=== PATIENT | male | born 1985 | race Caucasian/White ===

== ENCOUNTER 2016-11-23 16:44 | Inpatient (IN) ==
[2016-11-23] MEDS ORDERED: ACETAMINOPHEN 325 MG TABLET PO PRN (19:14)
[2016-11-23] MEDS ORDERED: traMADol 50 MG TABLET PO PRN (19:14)
[2016-11-23] MEDS ORDERED: SODIUM CHLORIDE 0.9% 250 ML IV PRN (19:21)
[2016-11-23 20:00] LABS: Basophils % 0.1 % (0.0-0.8); Eosinophils # 0.1 10*3/uL (0.0-0.87); Eosinophils % 0.5 % (0.00-10.9); Hematocrit 30.3 VOL% (42.0-52.0); Hemoglobin 11.2 GM/DL (14.0-18.0); Immature Granulocytes % 0.5 %; Immature Granulocytes Absolute 0.05 #; Lymphocytes # 1.2 10*3/uL (1.4-4.0); Lymphocytes % 11.1 % (21.2-54.2); Mean Corpuscular Hemoglobin 32 PG (27-34); Mean Corpuscular Volume 86.6 FL (87-102); Mean Platelet Volume 9.5 FL (9.6-12.0); Monocytes # 0.5 10*3/uL (0.11-0.8); Monocytes % 4.6 % (1.7-12.7); Neutrophils # 8.9 10*3/uL (1.4-7.4); Neutrophils % 83.2 % (38.7-73.9); Platelet Count 188 T/CUMM (130-400); Red Cell Distribution Width 12.3 % (9.3-17.3); White Blood Count 10.7 T/CUMM (4-12)
[2016-11-23] MEDS: LACTATED RINGERS 1,000 ML IV SCH (20:15)
[2016-11-24 01:01] LABS: Hematocrit 25.6 VOL% (42.0-52.0); Hemoglobin 9.3 GM/DL (14.0-18.0)
[2016-11-24] MEDS: LACTATED RINGERS 1,000 ML IV SCH ×2 (02:11→10:31)
[2016-11-24 06:43] LABS: Hematocrit 25.1 VOL% (42.0-52.0)
[2016-11-24 07:52] LABS: Hematocrit 25.1 VOL% (42.0-52.0); Hemoglobin 9.1 GM/DL (14.0-18.0)
[2016-11-24 12:39] VITALS: BP 119/61
[2016-11-24 12:58] LABS: Hemoglobin 9.1 GM/DL (14.0-18.0)
== END 2016-11-24 14:42 | disposition home or self-care (01) | DRG 921 ==
LOC: N.5E → OBSVTOIN 18:27
PROVIDERS: ADMIT Specialist; ATTEND Specialist